=== PATIENT | female | born 1965 ===

== ENCOUNTER 2025-02-16 00:14 | Outpatient (CLI) | payer MEDICAID, SELFPAY ==
--- NOTE | 2025-02-16 | DI.US_ITS ---
Exam(s) US RENAL EXAM: US RENAL CLINICAL HISTORY: METS FROM BREAST CANCER, C79.9, C50.919, HX HYDRONEPHROSIS. TECHNIQUE: Basilio scale imaging and color doppler were used. COMPARISON: No exams were available for comparison FINDINGS: Right kidney: 12.2cm Echogenicity: Normal Hydronephrosis: Moderate. Ureteral stent noted with upper pigtail in renal pelvis. Cyst or mass: No Nephrolithiasis: No Left kidney: 6.9cm Echogenicity: Normal Hydronephrosis: No ureteral stent noted with upper pigtail in renal pelvis. Cyst or mass: No Nephrolithiasis: No Bladder:Normal. Bilateral ureteral stents are noted with both distal pigtails located in the bladder . Prevoid vol: Cc Postvoid vol: Cc IMPRESSION: Moderate right hydronephrosis. Bilateral ureteral stents appear in good position. Atrophic left kidney. DATA REPOSITORY:
--- NOTE | 2025-02-16 | DI.RAD_ITS ---
Exam(s) XR CHEST 2V PA LATERAL EXAM: XR CHEST 2V PA LATERAL CLINICAL HISTORY: C79.9,C50.919 Mets from breast ca, non-productive cough TECHNIQUE: 2D digital imaging was performed. Two views. COMPARISON: No exams were available for comparison FINDINGS: HEART: Normal size. Aorta: Not dilated. PULMONARY VASCULATURE: Normal. MEDIASTINUM: Unremarkable. LUNGS: Clear. PLEURAL SPACE: No pleural effusion or pneumothorax. BONE:Unremarkable for age. SOFT TISSUES: Upper abdominal catheter tubing. Bilateral renal stents. IMPRESSION: No acute abnormality. DATA REPOSITORY: RADIATION DOSE DELIVERED:
== END 2025-02-16 00:34 ==
LOC: DI 00:14
PROVIDERS: PCP Family Medicine; Visit Provider Internal Medicine
DX: M79.9 Soft tissue disorder, unspecified (principal); C50.919 Malignant neoplasm of unspecified site of unspecified female breast
CPT/HCPCS: 76770; 71046

== ENCOUNTER 2025-03-26 04:13 | Outpatient (CLI) | payer MEDICAID, SELFPAY ==
[2025-03-26 10:49] LABS: Abs Immature Grans 0.01 10^3/uL (0.0-0.06); Absolute Basophil Count 0.05 10^3/uL (0.0-0.2); Absolute Eosinophil Count 0.14 10^3/uL (0.0-0.7); Absolute Lymphocyte Count 1.11 10^3/uL (1.2-3.4); Absolute Monocyte Count 0.58 10^3/uL (0.1-0.8); Absolute Neutrophil Count 3.84 10^3/uL (1.2-6.7); Basophils % 0.9 %; Eosinophils % 2.4 %; HCT 34.6 % (36.0-46.0); HGB 11.1 g/dL (11.2-15.7); Immature Grans % 0.2 %; Lymphocytes % 19.4 %; MCH 29.1 pg (27.0-33.0); MCHC 32.1 % (32.0-36.0); MCV 91 fL (80-95); MPV 9.5 fL (8.0-11.0); Monocytes % 10.1 %; Platelet Count 250 10^3/uL (130-400); RBC 3.81 10^6/uL (3.93-5.22); RDW 21.2 % (11.7-14.6); WBC 5.73 10^3/uL (4.4-10.8)
[2025-03-26 11:04] LABS: Anisocytosis 2+; Diff Comment RBC Morph Reviewed
[2025-03-26 11:07] LABS: ALT 84 U/L (14-59); AST 61 U/L (15-37); Albumin 2.9 g/dL (3.4-5.0); Alkaline Phosphatase 139 U/L (46-116); BUN 14 mg/dL (7-18); Bilirubin, Total 0.4 mg/dL (0.2-1.0); CREATININE 1.7 mg/dL (0.55-1.02); Calcium 8.6 mg/dL (8.5-10.1); Chloride 108 mmol/L (98-107); Estimated GFR 34.55 (mL/min/1.73m2); Glucose 69 mg/dL (74-106); Potassium 4.4 mmol/L (3.5-5.1); Sodium 141 mmol/L (136-145)
[2025-03-28 20:53] LABS: Cancer Ag 15-3 29 U/mL (<30)
== END 2025-03-26 04:14 | disposition home or self-care (01) ==
PROVIDERS: PCP Family Medicine; Visit Provider Nurse Practitioner Family
DX: C50.912 Malignant neoplasm of unspecified site of left female breast (principal); C79.51 Secondary malignant neoplasm of bone
CPT/HCPCS: 36415; 80053; 86300; 85025

== ENCOUNTER 2025-03-26 09:44 | Outpatient (CLI) | payer MEDICAID, SELFPAY ==
--- NOTE | 2025-03-26 09:45 | RT.EKG_ITS ---
APPROVED REPORT Exam: Resting ECG Reason for Exam: WORK UP Patient Location: O HR:61 bpm ECG Measurements Heart Rate 61 AXIS AR 136 P 53 QRSd 95 QRS -22 QT 425 T 50 QTc 428 Conclusion Sinus rhythm...normal P axis, V-rate 50- 99 Borderline left axis deviation...QRS axis (-15,-29) Low voltage, precordial leads...precordial leads <1.0mV RSR' in V1 or V2, probably normal variant...small R' only
== END 2025-03-26 09:45 | disposition home or self-care (01) ==
PROVIDERS: PCP Family Medicine; Visit Provider Nurse Practitioner Family
DX: R94.31 Abnormal electrocardiogram [ECG] [EKG] (principal)
CPT/HCPCS: 93005; 93010

== ENCOUNTER 2025-04-25 03:08 | Outpatient (CLI) | payer MEDICAID, SELFPAY ==
[2025-04-25 12:53] LABS: Abs Immature Grans 0.01 10^3/uL (0.0-0.06); Absolute Basophil Count 0.03 10^3/uL (0.0-0.2); Absolute Eosinophil Count 0.12 10^3/uL (0.0-0.7); Absolute Lymphocyte Count 0.99 10^3/uL (1.2-3.4); Absolute Monocyte Count 0.48 10^3/uL (0.1-0.8); Basophils % 0.7 %; Eosinophils % 2.8 %; HCT 29.8 % (36.0-46.0); HGB 9.3 g/dL (11.2-15.7); Immature Grans % 0.2 %; Lymphocytes % 22.9 %; MCH 30.8 pg (27.0-33.0); MCHC 31.2 % (32.0-36.0); MCV 99 fL (80-95); MPV 9.4 fL (8.0-11.0); Monocytes % 11.1 %; Neutrophils % 62.3 %; Platelet Count 221 10^3/uL (130-400); RBC 3.02 10^6/uL (3.93-5.22); RDW 18.1 % (11.7-14.6); RDW-SD 66.1 fL; WBC 4.33 10^3/uL (4.4-10.8)
[2025-04-25 13:34] LABS: ALT 25 U/L (14-59); AST 22 U/L (15-37); Albumin 2.7 g/dL (3.4-5.0); Alkaline Phosphatase 81 U/L (46-116); Anion Gap 5.6 mmol/L (3-11); BUN 13 mg/dL (7-18); Bilirubin, Total 0.2 mg/dL (0.2-1.0); CO2 26.4 mmol/L (21.0-32.0); CREATININE 1.6 mg/dL (0.55-1.02); Calcium 7.8 mg/dL (8.5-10.1); Chloride 110 mmol/L (98-107); Estimated GFR 37.15 (mL/min/1.73m2); Glucose 74 mg/dL (74-106); Potassium 4.3 mmol/L (3.5-5.1); Sodium 142 mmol/L (136-145); Total Protein 6.6 g/dL (6.4-8.2)
[2025-04-27 14:54] LABS: Cystatin C, S 1.27 mg/L; eGFR by Cystatin C 53 mL/min/BSA (>60)
[2025-04-27 19:29] LABS: Cancer Ag 15-3 28 U/mL (<30)
== END 2025-04-25 03:09 | disposition home or self-care (01) ==
LOC: LBO 03:08
PROVIDERS: Nurse Practitioner Family; PCP Family Medicine; Visit Provider Internal Medicine
DX: C50.912 Malignant neoplasm of unspecified site of left female breast (principal); C79.51 Secondary malignant neoplasm of bone
CPT/HCPCS: 36415; 80053; 82610; 86300; 85025

== ENCOUNTER 2025-05-30 02:29 | Outpatient (CLI) | payer MEDICAID, SELFPAY ==
[2025-05-30 13:04] LABS: Abs Immature Grans 0.01 10^3/uL (0.0-0.06); HCT 29.4 % (36.0-46.0); HGB 9.1 g/dL (11.2-15.7); Immature Grans % 0.3 %; MCH 30.2 pg (27.0-33.0); MCHC 31.0 % (32.0-36.0); MCV 98 fL (80-95); MPV 9.4 fL (8.0-11.0); Platelet Count 199 10^3/uL (130-400); RBC 3.01 10^6/uL (3.93-5.22); RDW 12.7 % (11.7-14.6); RDW-SD 44.3 fL; WBC 3.34 10^3/uL (4.4-10.8)
[2025-05-30 13:31] LABS: ALT 21 U/L (14-59); AST 15 U/L (15-37); Albumin 3.0 g/dL (3.4-5.0); Alkaline Phosphatase 88 U/L (46-116); Anion Gap 8.7 mmol/L (3-11); BUN 14 mg/dL (7-18); Bilirubin, Total 0.3 mg/dL (0.2-1.0); CO2 25.3 mmol/L (21.0-32.0); Calcium 9.0 mg/dL (8.5-10.1); Chloride 106 mmol/L (98-107); Estimated GFR 43.61 (mL/min/1.73m2); Glucose 109 mg/dL (74-106); Potassium 4.6 mmol/L (3.5-5.1); Sodium 140 mmol/L (136-145); Total Protein 7.6 g/dL (6.4-8.2)
[2025-06-01 09:16] LABS: Cancer Ag 15-3 30 U/mL (<30)
[2025-06-02 16:08] LABS: Cystatin C, S 1.35 mg/L
== END 2025-05-30 02:30 | disposition home or self-care (01) ==
LOC: LBO 02:29
PROVIDERS: PCP Family Medicine; Visit Provider Internal Medicine
DX: C50.912 Malignant neoplasm of unspecified site of left female breast (principal); C79.51 Secondary malignant neoplasm of bone; Z79.899 Other long term (current) drug therapy
CPT/HCPCS: 80053; 82610; 86300; 85025

== ENCOUNTER 2025-06-22 00:48 | Outpatient (CLI) | payer MEDICAID, SELFPAY ==
[2025-06-22 10:07] LABS: Abs Immature Grans 0.01 10^3/uL (0.0-0.06); HCT 31.2 % (36.0-46.0); HGB 10.0 g/dL (11.2-15.7); Immature Grans % 0.3 %; MCH 30.6 pg (27.0-33.0); MCHC 32.1 % (32.0-36.0); MCV 95 fL (80-95); MPV 8.4 fL (8.0-11.0); Platelet Count 348 10^3/uL (130-400); RBC 3.27 10^6/uL (3.93-5.22); RDW 14.1 % (11.7-14.6); RDW-SD 49.3 fL; WBC 3.91 10^3/uL (4.4-10.8)
[2025-06-22 10:31] LABS: ALT 23 U/L (14-59); AST 21 U/L (15-37); Albumin 3.1 g/dL (3.4-5.0); Alkaline Phosphatase 88 U/L (46-116); Anion Gap 10.6 mmol/L (3-11); BUN 15 mg/dL (7-18); Bilirubin, Total 0.2 mg/dL (0.2-1.0); CO2 24.4 mmol/L (21.0-32.0); Calcium 8.9 mg/dL (8.5-10.1); Chloride 106 mmol/L (98-107); Estimated GFR 43.61 (mL/min/1.73m2); Glucose 125 mg/dL (74-106); Potassium 4.5 mmol/L (3.5-5.1); Sodium 141 mmol/L (136-145); Total Protein 7.8 g/dL (6.4-8.2)
[2025-06-26 14:38] LABS: Cancer Ag 15-3 38 U/mL (<30)
== END 2025-06-22 00:49 | disposition home or self-care (01) ==
LOC: LBO 00:48
PROVIDERS: PCP Family Medicine; Visit Provider Nurse Practitioner Family
DX: C50.912 Malignant neoplasm of unspecified site of left female breast (principal); C79.51 Secondary malignant neoplasm of bone
CPT/HCPCS: 36415; 80053; 86300; 85025

== ENCOUNTER 2025-08-01 04:03 | Outpatient (CLI) | payer MEDICAID, SELFPAY ==
[2025-08-01 11:06] LABS: Abs Immature Grans 0.01 10^3/uL (0.0-0.06); HCT 28.3 % (36.0-46.0); HGB 9.2 g/dL (11.2-15.7); Immature Grans % 0.2 %; MCH 30.3 pg (27.0-33.0); MCHC 32.5 % (32.0-36.0); MCV 93 fL (80-95); MPV 9.3 fL (8.0-11.0); Platelet Count 237 10^3/uL (130-400); RBC 3.04 10^6/uL (3.93-5.22); RDW 16.8 % (11.7-14.6); RDW-SD 57.2 fL; WBC 4.25 10^3/uL (4.4-10.8)
[2025-08-01 11:40] LABS: ALT 32 U/L (14-59); AST 19 U/L (15-37); Albumin 2.9 g/dL (3.4-5.0); Alkaline Phosphatase 91 U/L (46-116); Anion Gap 8.0 mmol/L (3-11); BUN 14 mg/dL (7-18); Bilirubin, Total 0.3 mg/dL (0.2-1.0); CO2 23.0 mmol/L (21.0-32.0); Calcium 8.9 mg/dL (8.5-10.1); Chloride 107 mmol/L (98-107); Estimated GFR 40.14 (mL/min/1.73m2); Glucose 110 mg/dL (74-106); Potassium 4.2 mmol/L (3.5-5.1); Sodium 138 mmol/L (136-145); Total Protein 7.2 g/dL (6.4-8.2)
[2025-08-03 12:21] LABS: Cancer Ag 15-3 36 U/mL (<30)
== END 2025-08-01 04:04 | disposition home or self-care (01) ==
LOC: LBO 04:04
PROVIDERS: PCP Family Medicine; Visit Provider Internal Medicine
DX: C50.912 Malignant neoplasm of unspecified site of left female breast (principal); C79.51 Secondary malignant neoplasm of bone
CPT/HCPCS: 36415; 80053; 86300; 85025

== ENCOUNTER 2025-08-29 01:34 | Outpatient (CLI) | payer MEDICAID, SELFPAY ==
[2025-08-29 11:12] LABS: Abs Immature Grans 0.01 10^3/uL (0.0-0.06); HCT 24.8 % (36.0-46.0); HGB 7.6 g/dL (11.2-15.7); Immature Grans % 0.2 %; MCH 29.2 pg (27.0-33.0); MCHC 30.6 % (32.0-36.0); MCV 95 fL (80-95); MPV 9.3 fL (8.0-11.0); Platelet Count 273 10^3/uL (130-400); RBC 2.60 10^6/uL (3.93-5.22); RDW 17.8 % (11.7-14.6); RDW-SD 62.6 fL; WBC 5.07 10^3/uL (4.4-10.8)
[2025-08-29 11:27] LABS: ALT 16 U/L (14-59); AST 14 U/L (15-37); Albumin 2.5 g/dL (3.4-5.0); Alkaline Phosphatase 66 U/L (46-116); Anion Gap 5.9 mmol/L (3-11); BUN 17 mg/dL (7-18); Bilirubin, Total 0.3 mg/dL (0.2-1.0); CO2 25.1 mmol/L (21.0-32.0); Calcium 7.8 mg/dL (8.5-10.1); Chloride 110 mmol/L (98-107); Estimated GFR 34.55 (mL/min/1.73m2); Glucose 115 mg/dL (74-106); Potassium 4.6 mmol/L (3.5-5.1); Sodium 141 mmol/L (136-145); Total Protein 6.5 g/dL (6.4-8.2)
[2025-08-31 16:55] LABS: Cancer Ag 15-3 33 U/mL (<30)
== END 2025-08-29 01:35 | disposition home or self-care (01) ==
LOC: LBO 01:34
PROVIDERS: Nurse Practitioner Family; PCP Family Medicine; Visit Provider Internal Medicine
DX: C50.912 Malignant neoplasm of unspecified site of left female breast (principal); C79.51 Secondary malignant neoplasm of bone
CPT/HCPCS: 36415; 80053; 86300; 85025